=== PATIENT | male | born 1965 | race Caucasian/White ===

== ENCOUNTER → 2021-02-17 | Day surgery (SDC) | payer OTHER ==
[~2021-02-17] VITALS: Ht 177.8 cm; Wt 121.1 kg
[~2021-02-17] MED LIST: ACCUPRIL10 MG PO; AMLODIPINE BESY10 MG PO; COREG 25MG TAB25 MG PO; CYMBALTA60 MG PO; GLUCOPHAGE 500500 MG PO; HYDROCODON-ACE1 EAC4 PO; LASIX 40 MG TAB40 MG PO; LIPITOR TAB 2020 MG PO; MULTI-VITAMIN1 EACH PO; NAPROXEN500 MG PO; NOVOLOG FL100 UNIT/1 INJ; OMEPRAZOLE20 MG PO; SPIRONOLACTONE50 MG PO; TRICOR 145 MG145 MG PO
[2021-02-17 11:37] LABS: HEMOGLOBIN 12.7 gm/dl (14.0-17.5); RED BLOOD COUNT 4.17 M/UL (4.20-5.50); WHITE BLOOD COUNT 7.2 K/UL (4.5-11.0)
[2021-02-17 11:57] LABS: BUN/CREATININE RATIO 11 (0-10)
== END | disposition home or self-care (01) ==
LOC: OR 07:30
PROVIDERS: Orthopaedic Surgery
DX: S62.635A Displaced fracture of distal phalanx of left ring finger, initial encounter for closed fracture (principal); I10 Essential (primary) hypertension; E78.5 Hyperlipidemia, unspecified; K21.9 Gastro-esophageal reflux disease without esophagitis; E11.9 Type 2 diabetes mellitus without complications; G47.30 Sleep apnea, unspecified; Z99.89 Dependence on other enabling machines and devices; Z98.84 Bariatric surgery status; Z79.4 Long term (current) use of insulin; Z79.899 Other long term (current) drug therapy; Z20.822 Contact with and (suspected) exposure to COVID-19; W23.0XXA Caught, crushed, jammed, or pinched between moving objects, initial encounter; Y99.0 Civilian activity done for income or pay
CPT/HCPCS: 36415; 73140; 76000; 80048; 82962; 85025; C1713; J0690; J1100; J2001; J2250; J2405; J2704; J3010; J7030; J7120; U0002

== ENCOUNTER 2021-03-22 17:18 | Emergency (ER) | payer OTHER ==
[~2021-03-22 17:18] MED LIST changes: -NAPROXEN500 MG PO
[2021-03-22] MEDS ORDERED: NAPROXEN500 MG PO (19:34)
== END 2021-03-22 20:10 | disposition home or self-care (01) ==
LOC: ER1 17:18
DX: G89.18 Other acute postprocedural pain (principal); M79.645 Pain in left finger(s)
CPT/HCPCS: 99283